=== PATIENT | male | born 1975 | race Caucasian/White ===

== ENCOUNTER 2016-12-29 17:14 | Inpatient (IN) ==
[2016-12-29] MEDS ORDERED: Aspirin 81 MG TAB.CHEW PO ONE (17:36)
[2016-12-29] MEDS: Nitroglycerin 0.4 MG TAB.SUBL SL STA ×2 (17:58→18:38)
[2016-12-29] MEDS ORDERED: 0.9 % Sodium Chloride 1,000 ML IV ONE (18:10)
[2016-12-29 18:25] LABS: BUN/Creatinine Ratio 9 (6-26); Blood Urea Nitrogen 13 mg/dL (8-26); Calcium 8.9 mg/dL (8.6-10.8); Carbon Dioxide 21 mEq/L (19-29); Chloride 93 mEq/L (98-109); Lipase 56 Units/L (8-78); Osmolality,Calculated 305 (280-300); Sodium 128 mEq/L (136-145); eGFR For African Americans > 60 (> 60); eGFR For Non-African Americans 53 (> 60)
[2016-12-29 18:31] LABS: Glucose 797 mg/dL (70-99)
[2016-12-29] MEDS ORDERED: Insulin LISPRO 300 UNITS/3 ML VIAL SQ ONE ×2 (18:32→21:09)
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
[2016-12-29 19:03] LABS: VBG HCO3 25.4 mEq/L (21-27); VBG PH 7.38 pH Units (7.32-7.42)
--- NOTE | 2016-12-29 19:43 | Emergency Department Note ---
Disposition Clinical Impression: Chest pain Qualifiers: Chest pain type: unspecified Qualified Code(s): R07.9 - Chest pain, unspecified Disposition: Admitted As Inpatient Condition: Good Time of Disposition: 20:13 Chest Pain HPI - General Chief Complaint: ED Chest Pain Stated Complaint: Chest Pain Time Seen by Provider: 12/29/16 17:23 Source: patient Limitations: no limitations Vital Signs Reviewed: Yes Nursing Notes Reviewed: Yes - History of Present Illness HPI Narrative: 41-year-old male with history of thoracic aortic dissection in April presents with intermittent episodes of chest pain that is retrosternal and associated with shortness of breath. Episodes will last a few minutes at a time and have been becoming more frequent over the last several days. He also has a history of diabetes and hypertension and is noncompliant with his medications at home. He has associated nausea without vomiting. Pt complaint: chest pain Severity scale (1-10): 6 - Related Data Home Medications Medication Instructions Recorded Confirmed No Known Home Drugs 12/29/16 12/29/16 Allergies Allergy/AdvReac Type Severity Reaction Status Date / Time No Known Allergies Allergy Verified 12/29/16 17:51 All systems ED: reviewed and negative except as stated. 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 This procedure was done a little over a year ago.) - Social History Smoking Status: Former smoker Alcohol use: Reports: none Drug use: Reports: none Physical Exam - Head Head exam: atraumatic, normocephalic, normal inspection - Eye Eye exam: Present: normal appearance, PERRL, EOMI - ENT ENT exam: normal exam, normal oropharynx, mucous membranes moist - Neck Neck exam: Present: normal inspection, full ROM, trachea midline - Chest Chest inspection: Present: scar consistent with history of aneurysm repair, symmetric chest wall rise - Respiratory Respiratory exam: Clear to auscultation bilaterally without wheezes rales or rhonchi Cardiovascular Cardiovascular exam: Present: regular rate, normal rhythm, normal heart sounds - Abdominal Exam Abdominal exam: Present: soft, Non-Tender. Absent: tenderness, distention, guarding, rebound, rigidity - Extremities Exam Extremities exam: Present: normal inspection, full ROM - Expanded Lower Extremity Exam Hip/Pelvis exam: Present: normal inspection, full ROM - Back Exam Back exam: Present: normal inspection, full ROM. Absent: tenderness, CVA tenderness (R), CVA tenderness (L) - Neurological Exam Neurological exam: Present: alert, oriented X3, CN II-XII intact - Psychiatric Psychiatric exam: Present: normal affect, normal mood - Skin Skin exam: Present: warm, dry, intact, normal color - General Limitations: no limitations General appearance: alert Course - Reevaluation(s) Reevaluation #1: Trop neg, but Glucose elevated to 800. No DKA. Received 10U insulin and 1L NS. Pt accepted to Dr. Espinal. Time: 20:12 Vital Signs Temperature 98.6 F 12/29/16 17:22 Pulse Rate 97 12/29/16 17:22 Respiratory Rate 18 12/29/16 17:22 Blood Pressure 213/122 12/29/16 17:22 O2 Sat by Pulse Oximetry 96 12/29/16 17:22 Temperature 98.6 F 12/29/16 17:22 Pulse Rate 80 12/29/16 19:23 Respiratory Rate 16 12/29/16 19:23 Blood Pressure 183/95 12/29/16 19:23 O2 Sat by Pulse Oximetry 97 12/29/16 19:23 Oxygen Delivery Oxygen Delivery Room Air Chest Pain - Lab Data Result diagrams: 12/29/16 17:50 Lab Results 12/29/16 12/29/16 12/29/16 Range/Units 17:50 17:50 18:56 VBG pH (7.32-7.42) pH Units VBG pCO2 (41-51) mmHg VBG pO2 (25-40) mmHg VBG HCO3 (21-27) mEq/L Sodium 128 L (136-145) mEq/L Potassium 4.0 (3.5-4.5) mEq/L Chloride 93 L (98-109) mEq/L Carbon Dioxide 21 (19-29) mEq/L BUN 13 (8-26) mg/dL Creatinine 1.47 H (0.72-1.25) mg/dL Est GFR ( Amer) > 60 (> 60) Est GFR (Non-Af Amer) 53 L (> 60) BUN/Creatinine Ratio 9 (6-26) Glucose 797 H* (70-99) mg/dL Calculated Osmolality 305 H (280-300) Calcium 8.9 (8.6-10.8) mg/dL Troponin I 0.00 (0-0.03) ng/mL Lipase 56 (8-78) Units/L Beta-Hydroxybutyric Acd 0.34 H (0.02-0.27) mmol/L 12/29/16 Range/Units 18:56 VBG pH 7.38 (7.32-7.42) pH Units VBG pCO2 43 (41-51) mmHg VBG pO2 130 H (25-40) mmHg VBG HCO3 25.4 (21-27) mEq/L Sodium (136-145) mEq/L Potassium (3.5-4.5) mEq/L Chloride (98-109) mEq/L Carbon Dioxide (19-29) mEq/L BUN (8-26) mg/dL Creatinine (0.72-1.25) mg/dL Est GFR ( Amer) (> 60) Est GFR (Non-Af Amer) (> 60) BUN/Creatinine Ratio (6-26) Glucose (70-99) mg/dL Calculated Osmolality (280-300) Calcium (8.6-10.8) mg/dL Troponin I (0-0.03) ng/mL Lipase (8-78) Units/L Beta-Hydroxybutyric Acd (0.02-0.27) mmol/L
[2016-12-29] MEDS ORDERED: *HR* Morphine 2 MG/ML SYRINGE IVP PRN (21:09)
[2016-12-29] MEDS ORDERED: Nicotine 21 MG PATCH.TD24 TD PRN (21:09)
[2016-12-29] MEDS ORDERED: Insulin LISPRO 300 UNITS/3 ML VIAL SQ PRN ×2 (21:09)
[2016-12-29] MEDS ORDERED: Pantoprazole 40 MG VIAL IVP STA (21:09)
[2016-12-29] MEDS ORDERED: *HR* OxyCODONE Immed Rel 5 MG TABLET PO PRN (21:09)
[2016-12-29] MEDS ORDERED: Acetaminophen 325 MG TABLET PO PRN (21:09)
[2016-12-29] MEDS ORDERED: *HR* Dextrose 50 % in Water (Syg) 50 ML SYRINGE IVP PRN (21:09)
[2016-12-29] MEDS ORDERED: *HR* Metoprolol 5 MG/5 ML VIAL IVP PRN (21:09)
[2016-12-29] MEDS ORDERED: *HR* Promethazine 25 MG/ML VIAL IVP PRN (21:09)
[2016-12-29] MEDS ORDERED: Dextrose Gel 15 GM PO PRN ×2 (21:09)
[2016-12-29] MEDS ORDERED: Naloxone 0.4 MG/ML INJ IVP PRN (21:09)
[2016-12-29] MEDS ORDERED: D5% in Water 1,000 ML IV PRN (21:09)
[2016-12-29] MEDS ORDERED: Nitroglycerin 0.4 MG TAB.SUBL SL PRN (21:09)
[2016-12-29] MEDS ORDERED: Ipratropium/Albuterol Neb 3 ML IH PRN (21:09)
[2016-12-29] MEDS ORDERED: Insulin Human Regular 100 UNIT in 0.9 % Sodium Chloride 100 ML IVC SCH (21:15)
[2016-12-29] MEDS ORDERED: 0.9 % Sodium Chloride 1,000 ML IVC SCH (21:15)
[2016-12-29] MEDS ORDERED: 0.9 % Sodium Chloride 1,000 ML IVC STA (21:28)
[2016-12-29] MEDS ORDERED: Lidocaine -MPF 1% 2 ML VIAL ID PRN (21:29)
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
[2016-12-29 22:10] LABS: Basophils # 0.1 K/mcL (0.0-0.2); Basophils % 0.5 %; Eosinophils # 0.1 K/mcL (0.0-0.6); Eosinophils % 1.2 %; Hematocrit 40.4 % (37.5-50.1); Hemoglobin 14.4 g/dL (12.9-16.9); Immature Granulocytes % 0.3 % (0-4); Lymphocytes # 2.6 K/mcL (0.6-4.6); Lymphocytes % 25.8 %; Mean Corpuscular HGB Conc 35.6 g/dL (31.6-35.5); Mean Corpuscular Hemoglobin 27.7 pg (28.0-33.3); Mean Corpuscular Volume 77.8 fL (83.0-100.0); Mean Platelet Volume 10.2 fL (9.4-12.4); Monocytes # 0.6 K/mcL (0.0-1.3); Monocytes % 6.3 %; Neutrophils # 6.6 K/mcL (1.6-8.9); Platelet Count 322 K/mcL (140-400); Red Blood Count 5.19 M/mcL (4.19-5.50); Red Cell Distribution Width 13.1 % (11.5-14.5); Segmented Neutrophils % 65.9 %
[2016-12-29 22:14] LABS: VBG HCO3 27.8 mEq/L (21-27); VBG PH 7.39 pH Units (7.32-7.42)
[2016-12-29 22:16] LABS: Prothrombin Time 10.5 Seconds (9.4-12.1)
[2016-12-29 22:18] LABS: Activated Partial Thrombo Time 27.6 Seconds (26.0-36.0)
[2016-12-29 22:22] LABS: Phosphorous 2.8 mg/dL (2.3-4.7)
[2016-12-29 22:23] LABS: Magnesium 2.2 mg/dL (1.6-2.6)
[2016-12-30 00:46] LABS: Bilirubin,Urine Negative (Negative); Blood,Urine Negative (Negative); Clarity,Urine Clear (Clear); Color,Urine Yellow (Yellow); Glucose,Urine (UA) >=1000 mg/dL (Normal); Ketones,Urine Negative (Negative); Leukocyte Esterase,Urine Negative (Negative); Nitrite,Urine Negative (Negative); Protein,Urine Trace mg/dL (Neg-Trace); Specific Gravity,Urine > 1.030 (1.010-1.025); Urobilinogen,Urine Normal (Normal)
[2016-12-30 00:47] LABS: Bacteria,Urine None Seen per hpf (None-Few); Hyaline Casts,Urine None Seen per lpf (None-Few); RBC,Urine 0-3 per hpf (0-3); Squamous Epithelial Cell,Urine Moderate per lpf (None-Few); WBC,Urine 0-3 per hpf (0-3)
[2016-12-30 00:54] LABS: Amphetamine Screen,Urine Negative ng/mL (Cutoff=1000); Barbiturate Screen,Urine Negative ng/mL (Cutoff=200); Benzodiazepines Screen,Urine Negative ng/mL (Cutoff=200); Cannabinoid Screen,Urine Negative ng/mL (Cutoff = 50); Cocaine Screen,Urine Negative ng/mL (Cutoff= 300); Opiate Screen,Urine Positive ng/mL (Cutoff=300); Phencyclidine Screen,Urine Negative ng/mL (Cutoff=25)
[2016-12-30] MEDS: 0.9 % Sodium Chloride w KCl 20 MEQ/1,000 ML MLS IVC SCH ×2 (01:27→05:30)
[2016-12-30 01:44] LABS: VBG HCO3 27.6 mEq/L (21-27); VBG PH 7.48 pH Units (7.32-7.42)
[2016-12-30 01:53] LABS: Hemoglobin A1C 10.1 %
[2016-12-30 01:58] LABS: Magnesium 2.1 mg/dL (1.6-2.6); Phosphorous 2.3 mg/dL (2.3-4.7)
[2016-12-30 02:02] LABS: Alanine Aminotransferase 29 Units/L (0-55); Albumin 3.6 g/dL (3.5-5.0); Alkaline Phosphatase 149 Units/L (38-126); Aspartate Amino Transferase 16 Units/L (5-34); BUN/Creatinine Ratio 11 (6-26); Blood Urea Nitrogen 11 mg/dL (8-26); Calcium 8.6 mg/dL (8.6-10.8); Carbon Dioxide 22 mEq/L (19-29); Chloride 104 mEq/L (98-109); Chol/HDL Ratio 8.9 (0-4.9); Cholesterol 205 mg/dL (< 200); Globulin 3.7 g/dL (2.4-3.5); Glucose 223 mg/dL (70-99); HDL Cholesterol 23 mg/dL (40-59); Osmolality,Calculated 292 (280-300); Potassium 3.3 mEq/L (3.5-4.5); Sodium 138 mEq/L (136-145); Total Protein 7.3 g/dL (6.0-8.3); Triglycerides 870 mg/dL (< 150); eGFR For African Americans > 60 (> 60); eGFR For Non-African Americans > 60 (> 60)
[2016-12-30 04:34] LABS: VBG HCO3 33.7 mEq/L (21-27); VBG PH 7.35 pH Units (7.32-7.42)
[2016-12-30 04:51] LABS: Magnesium 1.9 mg/dL (1.6-2.6); Phosphorous 3.4 mg/dL (2.3-4.7)
[2016-12-30 07:41] LABS: BUN/Creatinine Ratio 9 (6-26); Blood Urea Nitrogen 10 mg/dL (8-26); Calcium 8.2 mg/dL (8.6-10.8); Carbon Dioxide 25 mEq/L (19-29); Chloride 103 mEq/L (98-109); Glucose 175 mg/dL (70-99); Osmolality,Calculated 291 (280-300); Potassium 3.5 mEq/L (3.5-4.5); Sodium 139 mEq/L (136-145); eGFR For African Americans > 60 (> 60); eGFR For Non-African Americans > 60 (> 60)
[2016-12-30] MEDS ORDERED: Insulin DETEMIR 100 UNIT/ML X5UNITS SQ ONE (08:30)
[2016-12-30] MEDS ORDERED: *HR* Dextrose 50 % in Water (Syg) 50 ML SYRINGE IVP PRN (08:30)
[2016-12-30] MEDS ORDERED: Dextrose Gel 15 GM PO PRN ×2 (08:30)
[2016-12-30] MEDS ORDERED: D5% in Water 1,000 ML IV PRN (08:30)
[2016-12-30 09:23] LABS: VBG HCO3 25.9 mEq/L (21-27); VBG PH 7.43 pH Units (7.32-7.42)
[2016-12-30 09:35] LABS: Magnesium 1.9 mg/dL (1.6-2.6); Phosphorous 3.4 mg/dL (2.3-4.7)
[2016-12-30] MEDS: Aspirin 81 MG TAB.CHEW PO SCH (09:41)
--- NOTE | 2016-12-30 12:13 | Electrocardiograph Report ---
[address] [address] Test Date: 2016-12-29 Pat Name: Luis Yost Department: [id number] Room: 08 Gender: M Instructor Psychiatric Aide: : 1975 Requested By: Peyman Simpson Order Number: [id number] Reading MD: Jaclyn Ruff Measurements Intervals [place] Rate: 98 P: 51 AR: 128 QRS: 18 QRSD: 109 T: 55 QT: 373 QTc: 428 Interpretive Statements SINUS RHYTHM Electronically Signed On 12-30-2016 12:11:35 EST by Jaclyn Ruff
[2016-12-30] MEDS: Insulin LISPRO 300 UNITS/3 ML VIAL SQ SCH ×3 (12:33→21:12)
--- NOTE | 2016-12-30 12:49 | ECHO - Doppler Report ---
Echocardiogram Name: Luis Yost Date of Study: 12/30/2016 Date: 1975 Ht: 70.0 in Medical Record#: [id number] Age: 41 Wt: 310.0 lb Gender: Male BSA: 2.51 Order #: [id number] Location: [facility] Room #: 2N08 Reading Physician: Marv Laureano DO, FACC, CRUZ, CHEN Tongue Lining Stitcher: Debbie Piper RVT, [facility] Ordering Physician: Santino Bowles MD Primary Physician: None Indications: ACS Impressions: LVEF 60%. Normal LV chamber size and function. Mild concentric left ventricular hypertrophy. Moderate left ventricular diastolic dysfunction. Normal right ventricular structure and function. Mild pulmonary hypertension. Estimated RVSP is 36 mmHg. No significant valvular disease. Normally sized aortic root, largest diameter 3.8 cm. Left Ventricular Wall Motion: Rest Echo Findings All wall segments showed normal motion. Findings: Study Quality * Technically sub-optimal due to body habitus. ECG Findings * Normal sinus rhythm. Left Ventricle * LVEF 60%. * Normal LV chamber size and function. * Mild concentric left ventricular hypertrophy. * Moderate left ventricular diastolic dysfunction. Right Ventricle * Normal right ventricular structure and function. Left Atrium * Mildly dilated left atrium. Right Atrium * Normal right atrial size. Interatrial Septum * Interatrial septum not well evaluated. Aortic Valve * Aortic valve not well visualized. Grossly, appears to be a trileaflet valve. * No aortic regurgitation. * No aortic stenosis. Mitral Valve * Normal mitral valve structure and function. * Trace mitral regurgitation. * No mitral stenosis. Tricuspid Valve * Normal tricuspid valve structure and function. * Trace tricuspid regurgitation. * Mild pulmonary hypertension. * Estimated RVSP is 36 mmHg. * Estimated RA pressure is presumed to be at least 5 mmHg. IVC not visualized. Pulmonic Valve * Normal pulmonic valve structure and function. * Trace pulmonic regurgitation. Aorta * Normally sized aortic root, largest diameter 3.8 cm. Pericardium * The pericardium appears normal. IVC * The IVC is not well evaluated. Pulmonary Artery * Normal visualized portions of the main pulmonary artery. History Hypertension Diabetes Measurements: BP: 163/ 94 2D Normal Values RVIDd: 3.40 cm <2.7 cm IVSd: 1.40 cm 0.6 - 1.0 cm LVIDd: 5.20 cm 3.7 - 5.6 cm LVPWd: 1.40 cm 0.6 - 1.1 cm LVIDs: 3.83 cm 1.5 - 3.6 cm AO: 3.40 cm < 4.0 cm LA: 3.95 cm 2.0 - 4.0cm %FS: 26.90 cm >25 % LA volume: 45 Mitral Valve Dec Time:222.00 msec Peak E:1.27 m/sec Peak A:1.09 m/sec E/A Ratio:1.2 Peak E' Lat Logan:8.58 cm/s Peak E' Med Logan:7.8 cm/s E/E' Lat Ratio:14.8 E/E' Med Ratio:16.3 Tricuspid Valve TV Regurg Peak Grad: 31.00mmHg TV Regurg Peak Logan: 2.77m/sec Updated by Marv Laureano DO, MONSE, CRUZ, CHEN on 12/30/2016 12:44:29 PM electronically signed on 12/30/2016 12:45:00 PM with status of Final Wall Motion Peters: 1=Normal, 2=Hypokinesis, 3=Akinesis, 4=Dyskinesis, 5=Aneurysmal, 6=Hyperkinetic, X=Not Visualized (Blank)=Missing
[2016-12-30 13:34] LABS: VBG PH 7.4 pH Units (7.32-7.42)
[2016-12-30 13:35] LABS: VBG HCO3 24.8 mEq/L (21-27)
[2016-12-30 13:47] LABS: Magnesium 1.6 mg/dL (1.6-2.6); Phosphorous 3.1 mg/dL (2.3-4.7)
--- NOTE | 2016-12-30 14:33 | Internal Med Progress Note ---
Date of Encounter: 12/30/16 Time of Encounter: 14:30 - Assessment and plan (1) Malignant hypertensive urgency Current Visit: Yes Status: Acute Assessment and plan: History of noncompliance BP better controlled but still hypertensive. 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 (3) Diabetes mellitus Current Visit: Yes Status: Acute Assessment and plan: as listed above Qualifiers: Diabetes mellitus type: type 2 Diabetes mellitus complication status: with unspecified complications Diabetes mellitus senior living insulin use: unspecified senior living insulin use status Qualified Code(s): E11.8 - Type 2 diabetes mellitus with unspecified complications (4) Chest pain Current Visit: Yes Status: Acute Assessment and plan: REsolved at this time likely secondary to malignant hypertension Qualifiers: Chest pain type: unspecified Qualified Code(s): R07.9 - Chest pain, unspecified (5) Abdominal aortic aneurysm dissection Current Visit: Yes Status: Chronic (6) Chronic thoracic aortic dissection Current Visit: Yes Status: Chronic (7) Former heavy tobacco smoker Current Visit: Yes Status: Chronic (8) Morbid obesity with BMI of 40.0-44.9, adult Current Visit: Yes Status: Chronic (9) DVT prophylaxis Current Visit: Yes Status: Acute Assessment and plan: Lovenox SQ - Subjective Interval history: Patient seen and examined. Reports of feeling better compared to the prior day but still has mild diffuse headache. States he has not followed a physician in almost a year and despite his medical history he was not taking any medication at home prior to hospitalization. Upon arrival patient was noted to have Hypertensive urgency and was in DKA secondary to underlying DM. Patient is a newly diagnosed Diabetic during this hospitalization. States his chest pain is resolved at this time. - Constitutional Vitals: Temp Pulse Resp BP Pulse Ox 98.0 F 72 18 163/94 98 12/30/16 11:19 12/30/16 11:24 12/30/16 11:19 12/30/16 11:19 12/30/16 11:19 General appearance: Present: cooperative, A&O X 3, morbidly obese, no acute distress, answers questions appropriately - Head Head exam: Present: atraumatic, normocephalic - Eye Eye exam: Present: normal appearance, conjuntiva pink, sclera anicteric - Respiratory Respiratory exam: Present: CTAB. Absent: respiratory distress, wheezes - Cardiovascular Cardiovascular exam: Present: RRR, +S1, +S2 - GI/Abdominal GI/Abdominal exam: Present: normal bowel sounds, soft, no peritoneal signs. Absent: distended, tenderness - Extremities Exam Extremities exam: Present: warm, radial pulses palpable and symetrical. Absent : calf tenderness, cyanotic, pedal edema - Neurological Exam Neurological exam: Present: alert, oriented X3 - Psychiatric Psychiatric exam: Present: normal affect, normal mood Internal Medicine: Result - Labs CBC & Chem 7: 12/29/16 22:00 12/30/16 04:13 Labs: Short CBC 12/29/16 Range/Units 22:00 WBC 10.1 (4.3-11.1) K/mcL Hgb 14.4 (12.9-16.9) g/dL Hct 40.4 (37.5-50.1) % Plt Count 322 (140-400) K/mcL Neutrophils # 6.6 (1.6-8.9) K/mcL BMP 12/29/16 12/30/16 12/30/16 21:09 01:35 04:13 Sodium 138 D 139 Potassium 3.3 L 3.5 Chloride 104 103 Carbon Dioxide 22 25 BUN 11 10 Creatinine 0.99 1.07 Glucose 747 H* 223 H 175 H Calcium 8.6 8.2 L Cardiac Enzymes 12/29/16 12/30/16 12/30/16 Range/Units 22:00 04:13 09:10 Troponin I 0.01 0.02 0.00 (0-0.03) ng/mL Liver Function 12/30/16 Range/Units 01:35 Total Bilirubin 1.0 (0.2-1.2) mg/dL AST 16 (5-34) Units/L ALT 29 (0-55) Units/L Alkaline Phosphatase 149 H (38-126) Units/L Albumin 3.6 (3.5-5.0) g/dL Urine 12/30/16 Range/Units 00:30 Urine Color Yellow (Yellow) Urine Clarity Clear (Clear) Urine pH 6.0 (5.0-8.0) pH Units Ur Specific Ava > 1.030 H (1.010-1.025) Urine Protein Trace (Neg-Trace) mg/dL Urine Glucose (UA) >=1000 H (Normal) mg/dL - ABG Interpretation ABG results: PT/INR, D-dimer PT 10.5 Seconds (9.4-12.1) 12/29/16 22:00 Consult Discharge Plan - Plan Referrals: Kenton Giron [Non-Partnered Physician] - 01/09/17 11:30 am (PLEASE SHOW UP 30 MINUTES EARLY TO FILL OUT PAPER WORK. TAKE A PICTURE ID, INS. CARD AND ALL MEDICATION IN THE BOTTLES WITH YOU TO YOUR APPOINTMENT. IF YOU HAVE TO CANCEL PLEASE CALL [phone] WITHIN 24 HOURS OF YOUR APPOINTMENT. TAKE ALL DISCHARGE PAPER WORK WITH YOU. THANKS) NO,PCP [Primary Care Provider] -
[2016-12-30] MEDS: amLODIPine 5 MG TABLET PO SCH (15:11)
[2016-12-30] MEDS ORDERED: Insulin DETEMIR 100 UNIT/ML X5UNITS SQ SCH (21:00)
[2016-12-31 03:06] LABS: Basophils # 0.1 K/mcL (0.0-0.2); Basophils % 0.6 %; Eosinophils # 0.2 K/mcL (0.0-0.6); Eosinophils % 2.2 %; Hemoglobin 14.7 g/dL (12.9-16.9); Immature Granulocytes % 0.2 % (0-4); Lymphocytes # 2.7 K/mcL (0.6-4.6); Lymphocytes % 28.2 %; Mean Corpuscular Hemoglobin 27.4 pg (28.0-33.3); Mean Corpuscular Volume 78.4 fL (83.0-100.0); Mean Platelet Volume 10.5 fL (9.4-12.4); Monocytes # 0.6 K/mcL (0.0-1.3); Monocytes % 6.3 %; Platelet Count 347 K/mcL (140-400); Red Blood Count 5.36 M/mcL (4.19-5.50); Red Cell Distribution Width 13.7 % (11.5-14.5); Segmented Neutrophils % 62.5 %
[2016-12-31 03:20] LABS: BUN/Creatinine Ratio 10 (6-26); Blood Urea Nitrogen 12 mg/dL (8-26); Calcium 8.9 mg/dL (8.6-10.8); Carbon Dioxide 20 mEq/L (19-29); Chloride 101 mEq/L (98-109); Glucose 462 mg/dL (70-99); Magnesium 1.8 mg/dL (1.6-2.6); Osmolality,Calculated 296 (280-300); Phosphorous 3.1 mg/dL (2.3-4.7); Potassium 3.8 mEq/L (3.5-4.5); Sodium 133 mEq/L (136-145); eGFR For African Americans > 60 (> 60); eGFR For Non-African Americans > 60 (> 60)
[2016-12-31 03:21] LABS: % Iron Saturation 18 % (20-55); Iron 65 mcg/dL (65-175); Transferrin 251 mg/dL (174-364)
[2016-12-31 03:42] LABS: Ferritin 211 ng/ml (22-275)
[2016-12-31] MEDS: *HR* Enoxaparin 40 MG/0.4 ML SYRINGE SQ SCH (06:59)
[2016-12-31] MEDS: Insulin LISPRO 300 UNITS/3 ML VIAL SQ SCH ×7 (08:21→21:04)
[2016-12-31] MEDS ORDERED: Insulin DETEMIR 100 UNIT/ML X5UNITS SQ SCH (09:00)
[2016-12-31] MEDS: amLODIPine 5 MG TABLET PO SCH (09:14)
[2016-12-31] MEDS: Aspirin 81 MG TAB.CHEW PO SCH (09:14)
[2016-12-31] MEDS: Insulin DETEMIR 100 UNIT/ML X5UNITS SQ SCH ×2 (09:15→21:01)
--- NOTE | 2016-12-31 11:48 | Internal Med Progress Note ---
Date of Encounter: 12/31/16 Time of Encounter: 11:45 - Assessment and plan (1) Malignant hypertensive urgency Current Visit: Yes Status: Acute Assessment and plan: History of noncompliance BP better controlled but still hypertensive. Increased Lisinopril to 5mg, Metoprolol to 50mg PO qd, continue Amlodipine 10mg Hydralazine PRN SBP>150 continue to closely monitor BP patient educated about med compliance, willing to cooperate at this time (2) Diabetic hyperosmolar non-ketotic state Current Visit: Yes Status: Acute Assessment and plan: DKA resolved Newly diagnosed Type II DM, HbA1C: 10.1 Was able to tolerated PO intake well Increased Levemir to 34units q12h (adjustments made based on the correctional insulin requirement in the last 24hours) added humalog 6units TIDAC continue high dose sliding scale insulin algorithm continue to closely monitor fingerstick and blood glucose life skills educator counseling requested (3) Diabetes mellitus Current Visit: Yes Status: Acute Assessment and plan: as listed above Qualifiers: Diabetes mellitus type: type 2 Diabetes mellitus complication status: with unspecified complications Diabetes mellitus halfway insulin use: unspecified halfway insulin use status Qualified Code(s): E11.8 - Type 2 diabetes mellitus with unspecified complications (4) Chest pain Current Visit: Yes Status: Resolved Assessment and plan: REsolved at this time likely secondary to malignant hypertension Qualifiers: Chest pain type: unspecified Qualified Code(s): R07.9 - Chest pain, unspecified (5) Abdominal aortic aneurysm dissection Current Visit: Yes Status: Chronic (6) Chronic thoracic aortic dissection Current Visit: Yes Status: Chronic (7) Former heavy tobacco smoker Current Visit: Yes Status: Chronic (8) Morbid obesity with BMI of 40.0-44.9, adult Current Visit: Yes Status: Chronic (9) DVT prophylaxis Current Visit: Yes Status: Acute Assessment and plan: Lovenox SQ - Subjective Interval history: Patient seen and examined. Resting comfortably in bed and reports of feeling better compared to previous day. Noted to remain hypertensive and hyperglycemic throughout the night requiring additional hydralazine PRN. - Constitutional Vitals: Temp Pulse Resp BP Pulse Ox 98.3 F 75 18 145/83 98 12/31/16 11:33 12/31/16 11:33 12/31/16 11:33 12/31/16 11:33 12/31/16 11:33 General appearance: Present: cooperative, A&O X 3, morbidly obese, no acute distress, answers questions appropriately - Head Head exam: Present: atraumatic, normocephalic - Eye Eye exam: Present: normal appearance, conjuntiva pink, sclera anicteric - Respiratory Respiratory exam: Present: CTAB. Absent: accessory muscle use, rales, rhonchi, wheezes - Cardiovascular Cardiovascular exam: Present: RRR, +S1, +S2. Absent: diastolic murmur, gallop, rubs, systolic murmur - GI/Abdominal GI/Abdominal exam: Present: normal bowel sounds, soft. Absent: distended, tenderness - Extremities Exam Extremities exam: Present: warm, radial pulses palpable and symetrical. Absent : calf tenderness, pedal edema - Neurological Exam Neurological exam: Present: alert, oriented X3 - Psychiatric Psychiatric exam: Present: normal affect, normal mood Internal Medicine: Result - Labs CBC & Chem 7: 12/31/16 02:39 12/31/16 02:39 Labs: Short CBC 12/31/16 Range/Units 02:39 WBC 9.7 (4.3-11.1) K/mcL Hgb 14.7 (12.9-16.9) g/dL Hct 42.0 (37.5-50.1) % Plt Count 347 (140-400) K/mcL Neutrophils # 6.0 (1.6-8.9) K/mcL BMP 12/31/16 02:39 Sodium 133 L Potassium 3.8 Chloride 101 Carbon Dioxide 20 BUN 12 Creatinine 1.23 Glucose 462 H Calcium 8.9 - ABG Interpretation ABG results: PT/INR, D-dimer PT 10.5 Seconds (9.4-12.1) 12/29/16 22:00 Consult Discharge Plan - Plan Referrals: Kenton Giron [Non-Partnered Physician] - 01/09/17 11:30 am (PLEASE SHOW UP 30 MINUTES EARLY TO FILL OUT PAPER WORK. TAKE A PICTURE ID, INS. CARD AND ALL MEDICATION IN THE BOTTLES WITH YOU TO YOUR APPOINTMENT. IF YOU HAVE TO CANCEL PLEASE CALL [phone] WITHIN 24 HOURS OF YOUR APPOINTMENT. TAKE ALL DISCHARGE PAPER WORK WITH YOU. THANKS) NO,PCP [Primary Care Provider] -
[2017-01-01] MEDS: Pregabalin 50 MG CAPSULE PO SCH ×4 (00:14→20:27)
[2017-01-01] MEDS: *HR* Enoxaparin 40 MG/0.4 ML SYRINGE SQ SCH (05:10)
[2017-01-01 05:38] LABS: Basophils # 0.1 K/mcL (0.0-0.2); Basophils % 0.7 %; Eosinophils # 0.2 K/mcL (0.0-0.6); Eosinophils % 3.2 %; Hematocrit 41.3 % (37.5-50.1); Hemoglobin 13.8 g/dL (12.9-16.9); Immature Granulocytes % 0.4 % (0-4); Lymphocytes # 2.3 K/mcL (0.6-4.6); Lymphocytes % 30.5 %; Mean Corpuscular HGB Conc 33.4 g/dL (31.6-35.5); Mean Corpuscular Hemoglobin 26.7 pg (28.0-33.3); Mean Corpuscular Volume 79.9 fL (83.0-100.0); Mean Platelet Volume 10.1 fL (9.4-12.4); Monocytes # 0.5 K/mcL (0.0-1.3); Monocytes % 7.2 %; Neutrophils # 4.4 K/mcL (1.6-8.9); Platelet Count 292 K/mcL (140-400); Red Blood Count 5.17 M/mcL (4.19-5.50); Red Cell Distribution Width 13.2 % (11.5-14.5)
[2017-01-01 05:53] LABS: BUN/Creatinine Ratio 14 (6-26); Blood Urea Nitrogen 13 mg/dL (8-26); Calcium 8.4 mg/dL (8.6-10.8); Carbon Dioxide 23 mEq/L (19-29); Chloride 101 mEq/L (98-109); Glucose 329 mg/dL (70-99); Magnesium 1.8 mg/dL (1.6-2.6); Osmolality,Calculated 291 (280-300); Phosphorous 3.9 mg/dL (2.3-4.7); Potassium 3.7 mEq/L (3.5-4.5); Sodium 134 mEq/L (136-145); eGFR For African Americans > 60 (> 60); eGFR For Non-African Americans > 60 (> 60)
[2017-01-01] MEDS ORDERED: Insulin LISPRO 300 UNITS/3 ML VIAL SQ SCH (07:30)
[2017-01-01] MEDS: Aspirin 81 MG TAB.CHEW PO SCH (08:05)
[2017-01-01] MEDS: amLODIPine 5 MG TABLET PO SCH ×2 (08:06→17:41)
[2017-01-01] MEDS: Insulin DETEMIR 100 UNIT/ML X5UNITS SQ SCH ×3 (08:07→20:27)
[2017-01-01] MEDS: Insulin LISPRO 300 UNITS/3 ML VIAL SQ SCH ×6 (08:08→20:32)
--- NOTE | 2017-01-01 15:42 | Internal Med Progress Note ---
Date of Encounter: 01/01/17 Time of Encounter: 15:38 - Assessment and plan (1) Malignant hypertensive urgency Current Visit: Yes Status: Acute Assessment and plan: History of noncompliance BP better controlled but still hypertensive. Increased Lisinopril to 10mg, Metoprolol to 50mg PO qd, continue Amlodipine 10mg Hydralazine PRN SBP>150 continue to closely monitor BP patient educated about med compliance, willing to cooperate at this time (2) Diabetic hyperosmolar non-ketotic state Current Visit: Yes Status: Acute Assessment and plan: DKA resolved Newly diagnosed Type II DM, HbA1C: 10.1 Was able to tolerated PO intake well Increased Levemir to 44units q12h (adjustments made based on the correctional insulin requirement in the last 24hours) added humalog 16units TIDAC continue high dose sliding scale insulin algorithm continue to closely monitor fingerstick and blood glucose prosthodontist/educator counseling requested (3) Diabetes mellitus Current Visit: Yes Status: Acute Assessment and plan: as listed above Qualifiers: Diabetes mellitus type: type 2 Diabetes mellitus complication status: with unspecified complications 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 terminal 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 insulin use: unspecified joint terminal 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 insulin use status Qualified Code(s): E11.8 - Type 2 diabetes mellitus with unspecified complications (4) Chest pain Current Visit: Yes Status: Resolved Assessment and plan: REsolved at this time likely secondary to malignant hypertension Qualifiers: Chest pain type: unspecified Qualified Code(s): R07.9 - Chest pain, unspecified (5) Abdominal aortic aneurysm dissection Current Visit: Yes Status: Chronic (6) Chronic thoracic aortic dissection Current Visit: Yes Status: Chronic (7) Former heavy tobacco smoker Current Visit: Yes Status: Chronic (8) Morbid obesity with BMI of 40.0-44.9, adult Current Visit: Yes Status: Chronic (9) DVT prophylaxis Current Visit: Yes Status: Acute Assessment and plan: Lovenox SQ - Subjective Interval history: Patient seen and examined. Resting comfortably in bed and reports of feeling better compared to previous day. Yesterday evening patient reported of having blurry vision which is chronic in nature, improved today, however patient had a CT head done, which showed no acute intracranial abnormality. Patient was also noted to have family bring outside junk food and patient being noncompliant with diet. Detailed discussion held with patient in regards to being compliant to a diabetic diet. He expresses understanding and is willing to comply. Discharge once better control of BG and BP is achieved. - Constitutional Vitals: Temp Pulse Resp BP Pulse Ox 97.8 F 73 14 157/87 98 01/01/17 12:11 01/01/17 12:11 01/01/17 12:11 01/01/17 12:11 01/01/17 12:11 General appearance: Present: cooperative, A&O X 3, morbidly obese, no acute distress, answers questions appropriately - Head Head exam: Present: atraumatic, normocephalic - Eye Eye exam: Present: PERRL, conjuntiva pink, sclera anicteric - Respiratory Respiratory exam: Present: CTAB. Absent: accessory muscle use, rales, rhonchi, wheezes - Cardiovascular Cardiovascular exam: Present: RRR, +S1, +S2. Absent: diastolic murmur, gallop, rubs, systolic murmur - GI/Abdominal GI/Abdominal exam: Present: normal bowel sounds, soft, no peritoneal signs. Absent: distended, tenderness - Extremities Exam Extremities exam: Present: warm, radial pulses palpable and symetrical. Absent : calf tenderness, cyanotic, pedal edema - Neurological Exam Neurological exam: Present: alert, oriented X3, no focal deficits. Absent: pronater drift, facial droop, speech deficit - Psychiatric Psychiatric exam: Present: normal affect, normal mood Internal Medicine: Result - Labs CBC & Chem 7: 01/01/17 05:04 01/01/17 05:04 - ABG Interpretation ABG results: PT/INR, D-dimer PT 10.5 Seconds (9.4-12.1) 12/29/16 22:00 Consult Discharge Plan - Plan Referrals: Kenton Giron [Non-Partnered Physician] - 01/09/17 11:30 am (PLEASE SHOW UP 30 MINUTES EARLY TO FILL OUT PAPER WORK. TAKE A PICTURE ID, INS. CARD AND ALL MEDICATION IN THE BOTTLES WITH YOU TO YOUR APPOINTMENT. IF YOU HAVE TO CANCEL PLEASE CALL [phone] WITHIN 24 HOURS OF YOUR APPOINTMENT. TAKE ALL DISCHARGE PAPER WORK WITH YOU. THANKS) NO,PCP [Primary Care Provider] -
[2017-01-01 16:36] LABS: Amphetamines NEGATIVE ng/mL (Cutoff 30); Barbiturates NEGATIVE ng/mL (Cutoff 75); Benzodiazepines NEGATIVE ng/mL (Cutoff 75); Cocaine NEGATIVE ng/mL (Cutoff 30); Methadone NEGATIVE ng/mL (Cutoff 40); Methamphetamines NEGATIVE ng/mL (Cutoff 30); Opiates NEGATIVE ng/mL (Cutoff 30); Phencyclidine NEGATIVE ng/mL (Cutoff 15)
[2017-01-02 04:11] LABS: Basophils % 0.4 %; Eosinophils # 0.2 K/mcL (0.0-0.6); Eosinophils % 2.5 %; Hematocrit 42.1 % (37.5-50.1); Hemoglobin 14.2 g/dL (12.9-16.9); Immature Granulocytes % 0.7 % (0-4); Lymphocytes # 2.5 K/mcL (0.6-4.6); Lymphocytes % 26.8 %; Mean Corpuscular HGB Conc 33.7 g/dL (31.6-35.5); Mean Corpuscular Hemoglobin 26.9 pg (28.0-33.3); Mean Corpuscular Volume 79.7 fL (83.0-100.0); Monocytes # 0.6 K/mcL (0.0-1.3); Monocytes % 6.8 %; Neutrophils # 5.8 K/mcL (1.6-8.9); Platelet Count 314 K/mcL (140-400); Red Blood Count 5.28 M/mcL (4.19-5.50); Red Cell Distribution Width 13.2 % (11.5-14.5); Segmented Neutrophils % 62.8 %
[2017-01-02 04:28] LABS: BUN/Creatinine Ratio 14 (6-26); Blood Urea Nitrogen 14 mg/dL (8-26); Calcium 8.5 mg/dL (8.6-10.8); Carbon Dioxide 24 mEq/L (19-29); Chloride 99 mEq/L (98-109); Glucose 325 mg/dL (70-99); Magnesium 1.8 mg/dL (1.6-2.6); Osmolality,Calculated 289 (280-300); Phosphorous 4.1 mg/dL (2.3-4.7); Sodium 133 mEq/L (136-145); eGFR For African Americans > 60 (> 60); eGFR For Non-African Americans > 60 (> 60)
[2017-01-02] MEDS: *HR* Enoxaparin 40 MG/0.4 ML SYRINGE SQ SCH (05:15)
[2017-01-02] MEDS: amLODIPine 5 MG TABLET PO SCH (08:09)
[2017-01-02] MEDS: Insulin LISPRO 300 UNITS/3 ML VIAL SQ SCH ×7 (08:09→22:08)
[2017-01-02] MEDS: Pregabalin 50 MG CAPSULE PO SCH ×3 (08:09→22:07)
[2017-01-02] MEDS: Aspirin 81 MG TAB.CHEW PO SCH (08:09)
[2017-01-02] MEDS: Insulin DETEMIR 100 UNIT/ML X5UNITS SQ SCH ×2 (09:03→22:07)
--- NOTE | 2017-01-02 09:27 | Internal Med Progress Note ---
Date of Encounter: 01/02/17 Time of Encounter: 09:25 - Assessment and plan (1) Malignant hypertensive urgency Current Visit: Yes Status: Acute Assessment and plan: History of noncompliance BP better controlled Continue Lisinopril to 10mg, Metoprolol to 50mg PO qd, continue Amlodipine 10mg Hydralazine PRN SBP>150 continue to closely monitor BP patient educated about med compliance, willing to cooperate at this time (2) Diabetic hyperosmolar non-ketotic state Current Visit: Yes Status: Acute Assessment and plan: DKA resolved Newly diagnosed Type II DM, HbA1C: 10.1 Was able to tolerated PO intake well Increased Levemir to 54units q12h (adjustments made based on the correctional insulin requirement in the last 24hours) added humalog 22units TIDAC continue high dose sliding scale insulin algorithm continue to closely monitor fingerstick and blood glucose childbirth educator consultation noted (3) Diabetes mellitus Current Visit: Yes Status: Acute Assessment and plan: as listed above Qualifiers: Diabetes mellitus type: type 2 Diabetes mellitus complication status: with unspecified complications Diabetes mellitus prison insulin use: unspecified prison insulin use status Qualified Code(s): E11.8 - Type 2 diabetes mellitus with unspecified complications (4) Chest pain Current Visit: Yes Status: Resolved Assessment and plan: REsolved at this time likely secondary to malignant hypertension Qualifiers: Chest pain type: unspecified Qualified Code(s): R07.9 - Chest pain, unspecified (5) Abdominal aortic aneurysm dissection Current Visit: Yes Status: Chronic (6) Chronic thoracic aortic dissection Current Visit: Yes Status: Chronic (7) Former heavy tobacco smoker Current Visit: Yes Status: Chronic (8) Morbid obesity with BMI of 40.0-44.9, adult Current Visit: Yes Status: Chronic (9) DVT prophylaxis Current Visit: Yes Status: Acute Assessment and plan: Lovenox SQ - Subjective Interval history: Patient seen and examined. Resting comfortably in bed and reports of feeling better compared to previous day. BP better controlled, however hyperglycemia persists. It was noted that patient's family/visitors continue to bring snacks in the room and patient was noted to remain noncompliant with his diet. I had another extensive discussion with the patient in regards to his blood glucose control. He states he understands the severity of the disease and will be more compliant. Patient and family requested not to bring any food from outside due to persistent hyperglycemia. Patient also educated about not drinking soda as well. Discharge once better control of blood glucose is achieved. - Constitutional Vitals: Temp Pulse Resp BP Pulse Ox 98 F 65 16 130/81 95 01/02/17 07:21 01/02/17 07:21 01/02/17 07:21 01/02/17 07:21 01/02/17 07:21 General appearance: Present: cooperative, A&O X 3, morbidly obese, no acute distress, answers questions appropriately - Head Head exam: Present: atraumatic, normocephalic - Eye Eye exam: Present: PERRL, conjuntiva pink, sclera anicteric - Respiratory Respiratory exam: Present: CTAB. Absent: accessory muscle use, rales, rhonchi, wheezes - Cardiovascular Cardiovascular exam: Present: RRR, +S1, +S2. Absent: diastolic murmur, gallop, rubs, systolic murmur - GI/Abdominal GI/Abdominal exam: Present: normal bowel sounds, soft, no peritoneal signs. Absent: distended, tenderness - Extremities Exam Extremities exam: Present: warm, radial pulses palpable and symetrical. Absent : calf tenderness, cyanotic, pedal edema - Neurological Exam Neurological exam: Present: alert, oriented X3 - Psychiatric Psychiatric exam: Present: normal affect, normal mood Internal Medicine: Result - Labs CBC & Chem 7: 01/02/17 03:50 01/02/17 03:50 Labs: Short CBC 01/02/17 Range/Units 03:50 WBC 9.2 (4.3-11.1) K/mcL Hgb 14.2 (12.9-16.9) g/dL Hct 42.1 (37.5-50.1) % Plt Count 314 (140-400) K/mcL Neutrophils # 5.8 (1.6-8.9) K/mcL BMP 01/02/17 03:50 Sodium 133 L Potassium 4.0 Chloride 99 Carbon Dioxide 24 BUN 14 Creatinine 1.02 Glucose 325 H Calcium 8.5 L - ABG Interpretation ABG results: PT/INR, D-dimer PT 10.5 Seconds (9.4-12.1) 12/29/16 22:00 Consult Discharge Plan - Plan Referrals: Kenton Giron [Non-Partnered Physician] - 01/09/17 11:30 am (PLEASE SHOW UP 30 MINUTES EARLY TO FILL OUT PAPER WORK. TAKE A PICTURE ID, INS. CARD AND ALL MEDICATION IN THE BOTTLES WITH YOU TO YOUR APPOINTMENT. IF YOU HAVE TO CANCEL PLEASE CALL [phone] WITHIN 24 HOURS OF YOUR APPOINTMENT. TAKE ALL DISCHARGE PAPER WORK WITH YOU. THANKS) NO,PCP [Primary Care Provider] -
[2017-01-03] MEDS: *HR* Enoxaparin 40 MG/0.4 ML SYRINGE SQ SCH (05:36)
[2017-01-03 05:57] LABS: Basophils # 0.1 K/mcL (0.0-0.2); Basophils % 0.6 %; Eosinophils # 0.3 K/mcL (0.0-0.6); Eosinophils % 2.6 %; Hematocrit 41.8 % (37.5-50.1); Hemoglobin 14.4 g/dL (12.9-16.9); Immature Granulocytes % 0.5 % (0-4); Lymphocytes # 2.6 K/mcL (0.6-4.6); Lymphocytes % 27.2 %; Mean Corpuscular HGB Conc 34.4 g/dL (31.6-35.5); Mean Corpuscular Hemoglobin 27.7 pg (28.0-33.3); Mean Corpuscular Volume 80.5 fL (83.0-100.0); Mean Platelet Volume 10.4 fL (9.4-12.4); Monocytes # 0.8 K/mcL (0.0-1.3); Monocytes % 8.1 %; Neutrophils # 5.9 K/mcL (1.6-8.9); Platelet Count 320 K/mcL (140-400); Red Blood Count 5.19 M/mcL (4.19-5.50); Red Cell Distribution Width 13.2 % (11.5-14.5)
[2017-01-03 06:15] LABS: BUN/Creatinine Ratio 13 (6-26); Blood Urea Nitrogen 13 mg/dL (8-26); Calcium 8.6 mg/dL (8.6-10.8); Carbon Dioxide 26 mEq/L (19-29); Chloride 102 mEq/L (98-109); Glucose 202 mg/dL (70-99); Magnesium 1.8 mg/dL (1.6-2.6); Osmolality,Calculated 294 (280-300); Phosphorous 4.9 mg/dL (2.3-4.7); Potassium 3.7 mEq/L (3.5-4.5); Sodium 139 mEq/L (136-145); eGFR For African Americans > 60 (> 60); eGFR For Non-African Americans > 60 (> 60)
[2017-01-03] MEDS: amLODIPine 5 MG TABLET PO SCH (08:53)
[2017-01-03] MEDS: Aspirin 81 MG TAB.CHEW PO SCH (08:53)
[2017-01-03] MEDS: Insulin LISPRO 300 UNITS/3 ML VIAL SQ SCH ×4 (08:54→12:01)
[2017-01-03] MEDS: Pregabalin 50 MG CAPSULE PO SCH (08:54)
[2017-01-03] MEDS: Insulin DETEMIR 100 UNIT/ML X5UNITS SQ SCH (08:54)
--- NOTE | 2017-01-03 10:04 | Discharge Summary ---
Date of Encounter: 01/03/17 Time of Encounter: 09:10 - Discharge Diagnosis (1) Malignant hypertensive urgency Priority: Primary Status: Acute (2) Diabetic hyperosmolar non-ketotic state Priority: Primary Status: Acute (3) Diabetes mellitus Priority: Secondary Status: Acute Qualifiers: Diabetes mellitus type: type 2 Diabetes mellitus complication status: with unspecified complications Diabetes mellitus [facility] insulin use: unspecified long term acute care registered nurse insulin use status Qualified Code(s): E11.8 - Type 2 diabetes mellitus with unspecified complications (4) Chest pain Priority: Secondary Status: Resolved Qualifiers: Chest pain type: unspecified Qualified Code(s): R07.9 - Chest pain, unspecified (5) Abdominal aortic aneurysm dissection Priority: Secondary Status: Chronic (6) Chronic thoracic aortic dissection Priority: Secondary Status: Chronic (7) Former heavy tobacco smoker Priority: Secondary Status: Chronic (8) Morbid obesity with BMI of 40.0-44.9, adult Priority: Secondary Status: Chronic (9) DVT prophylaxis Priority: Secondary Status: Acute - Discharge Medications Prescriptions: Amlodipine [Norvasc] 10 mg PO DAILY #30 tablet Aspirin 81 mg PO DAILY #30 tab.chew Atorvastatin [Lipitor] 40 mg PO HS #30 tablet Insulin DETEMIR [Levemir Flextouch] 66 unit SQ Q12H #10 insuln.pen Insulin LISPRO [Humalog Kwikpen U-100] 22 unit SQ TIDAC #10 mls Lisinopril [Zestril] 10 mg PO DAILY #30 tablet Metoprolol [Lopressor] 50 mg PO BID #60 tablet Pregabalin [Lyrica] 50 mg PO TID #20 capsule Home Medications: Amlodipine [Norvasc] 10 mg PO DAILY #30 tablet 01/03/17 [Rx] Aspirin 81 mg PO DAILY #30 tab.chew 01/03/17 [Rx] Atorvastatin [Lipitor] 40 mg PO HS #30 tablet 01/03/17 [Rx] Insulin DETEMIR [Levemir Flextouch] 66 unit SQ Q12H #10 insuln.pen 01/03/17 [Rx] Insulin LISPRO [Humalog Kwikpen U-100] 22 unit SQ TIDAC #10 mls 01/03/17 [Rx] Lisinopril [Zestril] 10 mg PO DAILY #30 tablet 01/03/17 [Rx] Metoprolol [Lopressor] 50 mg PO BID #60 tablet 01/03/17 [Rx] Pregabalin [Lyrica] 50 mg PO TID #20 capsule 01/03/17 [Rx] Allergies/Adverse Reactions: Allergies No Known Allergies Allergy (Verified 12/29/16 17:51) Date of admission: 01/01/17 13:43 Primary care physician: PCP ZULEMA Discharging clinician: Carmenza Guan Anticipated date of discharge: 01/03/17 - Patient Status Disposition: Home, Self-Care Condition: Good Functional capacity at discharge: independent ambulation Overall status at discharge: patient is back to baseline - Discharge Instructions Follow Up With: Julita Jewell DO [Resident] - 01/05/17 2:00 pm (PLEASE SHOW UP 30 MINUTES EARLY TO FILL OUT PAPER WORK. TAKE YOUR PICTURE ID, INS. CARD, AND ALL MEDICATIONS IN THE BOTTLES WITH YOU TO YOUR APPOINMENT. TAKE YOUR DISCHARGE INSTRUCTIONS WITH YOU TO YOUR APPOINTMENT. IF YOU HAVE TO CANCEL PLEASE CALL [phone] WITHIN 24 HOURS OF YOUR APPOINTMENT.) Kenton Giron [Non-Partnered Physician] - (PLEASE SHOW UP 30 MINUTES EARLY TO FILL OUT PAPER WORK. TAKE A PICTURE ID, INS. CARD AND ALL MEDICATION IN THE BOTTLES WITH YOU TO YOUR APPOINTMENT. IF YOU HAVE TO CANCEL PLEASE CALL [phone] WITHIN 24 HOURS OF YOUR APPOINTMENT. TAKE ALL DISCHARGE PAPER WORK WITH YOU. THANKS) ZULEMA,PCP [Primary Care Provider] - Additional Instructions: Please follow up with her primary care physician within 5 days after discharge from the hospital. Please monitor blood glucose at home closely. Please check your blood glucose 4 times a day (fasting, before meals, 2 hours after meals, and before bedtime). Please continue to take insulin as prescribed. Please call your primary care doctor if you consistently have blood glucose greater than 200. The goal fasting fingerstick glucose is less than 140, and goal postprandial (2 hours after eating) fingerstick goal is less than 180. If you are noted to have blood glucose less than 100, please call your primary care doctor. Amlodipine, metoprolol, and lisinopril has been added to your medical regimen for hypertension. Please closely monitor your blood pressure at home. Your blood pressure goal is 140/90. Please seek medical help if you continued to have persistent high blood pressure despite medical therapy. Please make an ophthalmology appointment after discharge. Please resume all your other home medications as prescribed. Her primary care physician. - Diet and Activity Activity: resume usual activities as tolerated Diet: diabetic diet, low salt diet Hospital course: Mr. Yost is a 41 year old male with history significant for acute ascending thoracic aortic aneurysm repair/stent, chronic descending thoracic aortic dissection., Chronic abdominal aortic dissection, hepatic steatosis, PAD, COPD- emphysema, hypertension, chronic chest wall pain, DDD/DJD lumbar spine, osteoarthritis, CKD III, morbid obesity, former smoker who was admitted for DKA and hypertensive urgency. Patient was newly diagnosed with diabetes mellitus during this hospitalization. Patient has history of medical noncompliance and not following up with his primary care physician. He was started on insulin therapy. He was also started on metoprolol, amlodipine, and lisinopril for his blood pressure control. Patient continued to remain noncompliant with his diet for the first few days of his admission, requiring higher amounts of insulin therapy. Patient claims to be compliant with his diet however as per nursing staff patient still continues to snack on junk food which is being brought by his family while he is hospitalized. Diabetic education consultation was provided. Patient demonstrates understanding of how to use insulin and monitor blood glucose levels at home. At this time patient is hemodynamically stable with blood pressure within control and better control of blood glucose. He will be discharged to home with insulin therapy and antihypertensive medications. He is to follow-up with PCP within 5 days after his discharge from the hospital. Patient demonstrates understanding of his diagnosis and agrees with the discharge care. - Time Spent with Patient Total time spent providing and/or coordinating discharge services: Greater than 30 minutes - Constitutional Vitals: Temp Pulse Resp BP Pulse Ox 97.7 F 63 16 135/81 97 01/03/17 05:40 01/03/17 05:40 01/03/17 05:40 01/03/17 05:40 01/03/17 05:40 General appearance: Present: cooperative, A&O X 3, morbidly obese, no acute distress, answers questions appropriately - Head Head exam: Present: atraumatic, normocephalic - Respiratory Respiratory exam: Present: CTAB. Absent: accessory muscle use, rales, rhonchi, wheezes - Cardiovascular Cardiovascular exam: Present: RRR, +S1, +S2. Absent: diastolic murmur, gallop, rubs, systolic murmur - GI/Abdominal GI/Abdominal exam: Present: normal bowel sounds, soft, no peritoneal signs. Absent: distended, tenderness - Extremities Exam Extremities exam: Present: warm, radial pulses palpable and symetrical. Absent : calf tenderness, cyanotic, pedal edema - Neurological Exam Neurological exam: Present: alert, oriented X3, no focal deficits. Absent: pronater drift, facial droop, speech deficit - Psychiatric Psychiatric exam: Present: normal affect, normal mood
[2017-01-03] MEDS ORDERED: FLU VACC QS2016-17 36MOS UP/PF 0.5 ML SYRINGE IM ONE (11:02)
[2017-01-03 12:03] VITALS: BP 135/82
== END 2017-01-03 12:51 | disposition home or self-care (01) | DRG 199 ==
LOC: EMEROO 17:14 → 2NENU 17:14 → SUATTDRO 20:03 → 3BNU 20:04 → 2NNU 22:56
PROVIDERS: ADMIT Internal Medicine; ATTEND Internal Medicine